=== PATIENT | male | born 1965 | race Caucasian/White ===

== ENCOUNTER → 2022-03-09 | Outpatient (CLI) | payer BC, SELFPAY ==
--- NOTE | 2022-03-09 11:37 | RAD_ITS ---
EXAM: XR LEFT KNEE, 3 VIEWS CLINICAL INDICATION: PAIN TECHNIQUE: Three views of the left knee. This report was created using [employer] report generation technology. COMPARISON: None. FINDINGS: BONES/JOINTS: Unremarkable. No acute fracture. No subluxation. Normal alignment. Preservation of the joint space. No sclerotic or destructive changes observed. SOFT TISSUES: Unremarkable. No soft tissue swelling or gas. No radiopaque foreign body. RAD/Knee 3 Views IMPRESSION: Negative left knee x-rays. Electronically Signed: Michael Santana MD at 22:05 EDT ,
== END | disposition home or self-care (01) ==
LOC: MTRAD 11:36
PROVIDERS: PCP Nurse Practitioner Family; Referring Provider Nurse Practitioner Family; Visit Provider Nurse Practitioner Family
DX: M25.562 Pain in left knee (principal)
CPT/HCPCS: 73562

== ENCOUNTER 2024-01-31 20:56 | Observation (INO) | payer BC, SELFPAY ==
[2024-01-31 20:57] VITALS: BP 170/83; PULSE 85; RESP 18; TEMP 35.8; O2SAT 93
[2024-01-31 21:00] VITALS: BMI 53.1
--- NOTE | 2024-01-31 21:31 | CT_ITS ---
We are attempting to reach an attending provider to discuss findings. An addendum with communication details will be sent when the communication is complete. EXAM: CT Abdomen And Pelvis W/ Contrast Injection HISTORY: RLQ abd pain TECHNIQUE: Routine protocol CT abdomen pelvis. IV Contrast: IV 100mL Isovue-370 . Oral Contrast: without. Sagittal and coronal images were reconstructed. RADIATION DOSAGE (If Supplied By Facility): CTDIvol = ( 40.91 ) mGy, DLP = ( 1699.95 ) mGycm Individualized dose optimization techniques were used for this CT. COMPARISON: None. LIMITATIONS: None. FINDINGS: LOWER CHEST: Unremarkable. LIVER: Unremarkable. GALLBLADDER/BILE DUCTS: Unremarkable. PANCREAS: Unremarkable. SPLEEN: Unremarkable. ADRENAL GLANDS: Unremarkable. KIDNEYS / URETERS: Unremarkable. Small cyst in the left kidney, no follow-up needed. BOWEL / MESENTERY: Wall thickening of the base of the cecum. No bowel obstruction. APPENDIX: Dilated. 15 mm transverse diameter. 8 mm calcified appendicolith within the proximal lumen. Thickened wall with adjacent stranding. No definite findings to suggest perforation. PERITONEUM: No free air. Small amount of free fluid in the pelvis. VESSELS: Abdominal aorta is normal caliber. RETROPERITONEUM: Unremarkable. REPRODUCTIVE ORGANS: Unremarkable. BLADDER: Unremarkable. ABDOMINAL WALL: Small bilateral inguinal hernias containing only fat, no bowel. BONES: No acute abnormality. OTHER: None. CT/Abdomen/Pelvis W IV Cont ONLY IMPRESSION: Acute appendicitis. Appendicolith. No definite evidence of perforation. Electronically Signed: Nicki Chavez MD at 23:08 EDT ,
--- NOTE | 2024-01-31 21:32 | EDS_ITS ---
HPI HPI - GI History of Present Illness Chief Complaint: Abd Pain Informant: patient Narrative Narrative: Patient is a 58-year-old male with history of prior umbilical hernia repair performed by Dr. Olivo presenting with abdominal pain. Patient states that around 11 AM today he had some pain in his stomach and points to his periumbilical region. He felt like it was a cramp to get before having a bowel movement. As the day progressed started to localize to the right lower quadrant. He states is now been constant and sharp. He denies associate nausea, vomiting or diarrhea. He states he had a normal bowel movement today. Denies any fever or chills. Denies any radiation of the pain currently. Denies any history of kidney stones. Still has his appendix. Did have a routine screening colonoscopy was told he was fine for 7 years. No other complaints or concerns at this time. [facility] Medical History Back pain Umbilical hernia Home Medications ?Medication ?Instructions ?Recorded ?Last Taken ?Type NK 01/31/24 Unknown History Allergy/AdvReac Type Severity Reaction Status Date / Time No Known Allergies Allergy Verified 01/31/24 20:56 Social History Smoking Status: Never smoker ROS ROS ED Constitutional Constitutional ED: Denies chills or fever(s) Cardiovascular Cardiovascular: Denies chest pain Respiratory/Chest Respiratory/Chest: Denies cough Gastrointestinal Gastrointestinal: Reports abdominal pain; Denies constipation, diarrhea, nausea or vomiting Genitourinary Genitourinary ED: Denies dysuria or hematuria Musculoskeletal Musculoskeletal: Denies arthralgias, back pain or myalgias Integumentary Denies rash Hematologic/Lymphatic Hematologic/Lymphatic: Denies easy bleeding or easy bruising EXAM Physical Exam Const Vital Signs: 01/31/24 20:57 01/31/24 21:58 Temperature 96.5 F L Temperature Source Temporal Pulse Rate 85 75 Respiratory Rate 18 18 Blood Pressure 170/83 H 182/89 H Blood Pressure Mean 112 120 Pulse Ox 93 95 Oxygen Delivery Method Room Air Room Air Positive well nourished and well developed General Appearance ED: well developed and NAD HEENT Reports moist mucous membranes Neck supple Resp normal respiratory effort and clear to auscultation bilaterally Cardio regular rate and regular rhythm GI non-tender; Negative for non-distended GI Narrative: Protuberant abdomen. No reproducible tenderness to palpation. Patient points to his right lower quadrant as area of pain. No hernia appreciated. Palpation: soft; Negative for tender or guarding Extremity General Extremety ED: Negative for edema General Extremity: Negative for edema Neuro moves all extremities Sensorium / Orientation: alert Motor Exam: Negative for general weakness Psych mental status grossly normal and thought process normal Skin no wounds Lesions: no lesions Rashes: no rashes MDM MDM MDM Narrative Medical decision making narrative: Patient evaluated for worsening right lower quadrant abdominal pain. He started periumbilical and is now in the right lower quadrant. Is overall well- appearing. Vital signs significant for hypertension. Patient initially declining any pain medication but is amenable to taking Bentyl. He then asked for a mild pain medicine is given IV Toradol. Lab work largely normal. CT abdomen pelvis does show findings distant with acute appendicitis with appendicolith. No definite evidence of perforation. This is discussed with radiology. Patient started on Zosyn. Is informed of findings and need for surgery for treatment of acute appendicitis. He is now amenable to receiving morphine as he is continuing to have pain. He is also started on maintenance fluids. Will be kept NPO. We discussed the case with surgery on-call, Dr. Scherer. Lab Data Attestation: I reviewed the patient's lab results. Labs: Laboratory Results - last 24 hr 01/31/24 21:29 WBC 10.9 RBC 4.48 L Hgb 13.5 Hct 40.8 MCV 91.1 MCH 30.1 MCHC 33.1 RDW Std Deviation 40.7 RDW Coeff of Curt 12.3 Plt Count 281 MPV 10.0 Immature Gran % (Auto) 0.300 Neut % (Auto) 73.4 H Lymph % (Auto) 16.3 L [place] % (Auto) 7.6 Eos % (Auto) 1.9 Baso % (Auto) 0.5 Absolute Neuts (auto) 8.0 H Absolute Lymphs (auto) 1.78 Nucleated RBC % 0 Sodium 139 Potassium 3.8 Chloride 104 Carbon Dioxide 30.0 Anion Gap 5 BUN 10 Creatinine 0.86 Estim Creat Clear Calc 134.99 Est GFR (MDRD) Af Amer 117 Est GFR (MDRD) Non-Af 97 BUN/Creatinine Ratio 11.7 Glucose 116 H Calcium 9.5 Total Bilirubin 0.50 AST 15 ALT 26 Alkaline Phosphatase 91 Total Protein 7.3 Albumin 3.6 Globulin 3.7 Albumin/Globulin Ratio 1.0 Lipase 34 Radiography Diagnostic Testing: Clinical Impression(s) from Imaging Studies Abdomen/Pelvis CT 01/31/24 21:31 IMPRESSION: Acute appendicitis. Appendicolith. No definite evidence of perforation. Electronically Signed: Nicki Chavez MD at 23:08 EDT Reading Location ID and State: [address] [place] [address] Tel , Service support , ADDENDUM: 01/31/24 2317 IMPRESSION: Acute appendicitis. Appendicolith. No definite evidence of perforation. N.B. : The above Results were Read Back by Nicki Chavez MD to Leslie Cid DO, and understanding confirmed on 01/31/2024 23:10:28 (ET). Electronically Signed: Nicki Chavez MD at 23:08 EDT , Discharge Plan Triage Chief Complaint: Abd Pain ED Provider: Leslie Cid Dx/Rx/DC Orders Clinical Impression: Acute appendicitis Prescriptions: No Action NK Primary Care Provider: Sudha Pa NP Referrals: Sudha Pa NP, SOIL[employer] TECHNICIAN-C [Primary Care Provider] - Print Language: Chinese Disposition Disposition: Acute Care Hospital [facility]
[2024-01-31] MEDS: 0.9% Normal Saline (1000mL) 1,000 ML 125 ML IV (21:39)
[2024-01-31] MEDS: Dicyclomine 10 MG Capsule 20 MG PO (21:40)
[2024-01-31] MEDS: Ketorolac 15 MG/ML Vial IV (21:55)
[2024-01-31 21:58] VITALS: BP 182/89; PULSE 75; RESP 18; O2SAT 95
[2024-01-31 21:59] LABS: Absolute Lymphocyte Count 1.78 X10^3/uL (0.83-4.51); Basophil# 0.05 X10^3/uL; Basophil% 0.5 % (0-1); Eosinophil# 0.21 X10^3/uL; Eosinophils% 1.9 % (0-5); Hematocrit 40.8 % (40-54); Hemoglobin 13.5 g/dL (13.0-16.5); Lymphocyte # 1.78 X10^3/ul (0.83-4.51); Lymphocyte % 16.3 % (19-41); Mean Corp Hgb Conc 33.1 g/dL (32-36); Mean Corpuscular Hgb 30.1 pg (27.0-32.0); Mean Corpuscular Volume 91.1 fL (80-94); Monocyte# 0.83 X10^3/uL; Monocyte% 7.6 % (0-10); NRBC Flagged by Analyzer 0 % (0-5); Neutrophil # 8.04 X10^3/uL (2.7-7.7); Neutrophil % 73.4 % (47-70); Platelet Count 281 K/mm3 (150-450); RBC Distribution Width CV 12.3 % (11.6-14.6); RBC Distribution Width SD 40.7 fl (35.1-43.9); Red Blood Count 4.48 M/mm3 (4.6-6.2); White Blood Count 10.9 K/mm3 (4.4-11.0)
[2024-01-31 22:32] LABS: AST(SGOT) 15 U/L (15-37); Alanine Aminotransfer ALT/SGPT 26 U/L (16-61); Albumin, Serum 3.6 g/dL (3.2-5.0); Alkaline Phosphatase 91 U/L (45-117); Anion Gap 5 (5-15); BUN 10 mg/dL (7-18); BUN/Creat Ratio 11.7 RATIO (10-20); Calcium,Total 9.5 mg/dL (8.5-10.1); Chloride 104 mmol/L (98-107); Creatinine, Serum 0.86 mg/dL (0.70-1.30); EST Glomerular Filtration Rate 97 mL/min (>60); Est Glom Filt Rate - Afr Amer 117 mL/min (>60); Estimated Creatinine Clearance 134.99 ml/min; Globulin 3.7 g/dL (2.2-4.2); Glucose 116 mg/dL (74-106); Lipase 34 U/L (13-75); Potassium 3.8 mmol/L (3.5-5.1); Protein, Total 7.3 g/dL (6.4-8.2); Sodium Level 139 mmol/L (136-145)
[2024-01-31 23:00] VITALS: BP 166/79; PULSE 85; RESP 18; O2SAT 97
[2024-01-31] MEDS: morphine 8 MG/ML Syringe 6 MG IV (23:48)
[2024-01-31] MEDS: Piperacil/Tazobactam 3.375 GM in 0.9% Normal Saline (50mL MB+) 50 ML IV (23:49)
[2024-01-31 23:55] LABS: Bacteria 0 SEEN /hpf (None Seen); Mucous, Urine 0 SEEN /hpf (<or=2+); Red Blood Cells-Urine 0 SEEN /hpf (0-5); Squamous Epithelial Cells - UA 0 SEEN /hpf (0-5); White Blood Cells 0 SEEN /hpf (0-5)
[2024-01-31 23:59] VITALS: BP 166/79; PULSE 85; RESP 18; TEMP 35.8; O2SAT 97
[2024-02-01] VITALS (12 sets, daily range): BP systolic 97–142; BP diastolic 56–98; PULSE 77–97; RESP 16–18; TEMP 36.5–37; O2SAT 86–99; BMI 52.9
--- NOTE | 2024-02-01 | PCM.HP.STD ---
HPI - General HPI Narrative DICK LANTIGUA, is a 58 M who presents with abdominal pain that started this morning. Patient reports that the pain started at his umbilical area and now is in his right lower quadrant. He denies nausea or vomiting. He reports no fevers or chills. Pain does not radiate. [facility] Medical History Back pain Umbilical hernia Home Medications ?Medication ?Instructions ?Recorded ?Last Taken ?Type NK 01/31/24 Unknown History Allergy/AdvReac Type Severity Reaction Status Date / Time No Known Allergies Allergy Verified 01/31/24 20:56 Social History Smoking Status: Never smoker ROS Constitutional Constitutional: Denies anorexia, chills, fatigue or fever(s) Eyes Eyes: Denies blurry vision ENT HEENT: Denies abnormal hearing Cardiovascular Cardiovascular: Denies chest pain Respiratory/Chest Respiratory/Chest: Denies cough or dyspnea Gastrointestinal Gastrointestinal: Reports abdominal pain; Denies melena, nausea or vomiting Genitourinary Genitourinary: Denies change in urinary stream Musculoskeletal Musculoskeletal: Denies abnormal gait Integumentary Integumentary: Denies new lesions Neurologic Neurologic: Denies abnormal gait or focal weakness Psychiatric Psychiatric: Denies anxiety Endocrine Endocrinology: Denies heat intolerance Hematologic/Lymphatic Hematologic/Lymphatic: Denies easy bleeding Vital Signs Vital Signs Vital Signs: 01/31/24 20:57 01/31/24 21:58 01/31/24 23:00 Temperature 96.5 F L Temperature Source Temporal Pulse Rate 85 75 85 Respiratory Rate 18 18 18 Blood Pressure 170/83 H 182/89 H 166/79 H Blood Pressure Mean 112 120 108 Pulse Ox 93 95 97 Oxygen Delivery Method Room Air Room Air Room Air Weight Weight: 349 lb 10.45 oz Body Mass Index (BMI) 53.1 Physical Exam Const oriented x3 and no apparent distress Resp normal respiratory effort Cardio regular rate and regular rhythm GI soft to palpation Palpation: tender RLQ Extremity normal to inspection Results Lab / Micro Data 01/31/24 21:29 01/31/24 21:29 Labs: Laboratory Results - last 24 hr 01/31/24 21:29: WBC 10.9, RBC 4.48 L, Hgb 13.5, Hct 40.8, MCV 91.1, MCH 30.1, MCHC 33.1, RDW Std Deviation 40.7, RDW Coeff of Curt 12.3, Plt Count 281, MPV 10.0, Immature Gran % (Auto) 0.300, Neut % (Auto) 73.4 H, Lymph % (Auto) 16.3 L, [place] % (Auto) 7.6, Eos % (Auto) 1.9, Baso % (Auto) 0.5, Absolute Neuts (auto) 8.0 H, Absolute Lymphs (auto) 1.78, Nucleated RBC % 0, Sodium 139, Potassium 3.8, Chloride 104, Carbon Dioxide 30.0, Anion Gap 5, BUN 10, Creatinine 0.86, Estim Creat Clear Calc 134.99, Est GFR (MDRD) Af Amer 117, Est GFR (MDRD) Non-Af 97, BUN/Creatinine Ratio 11.7, Glucose 116 H, Calcium 9.5, Total Bilirubin 0.50, AST 15, ALT 26, Alkaline Phosphatase 91, Total Protein 7.3, Albumin 3.6, Globulin 3.7, Albumin/Globulin Ratio 1.0, Lipase 34 Imaging Radiology Impression Abdomen/Pelvis CT 01/31/24 21:31 IMPRESSION: Acute appendicitis. Appendicolith. No definite evidence of perforation. Electronically Signed: Nicki Chavez MD at 23:08 EDT Reading Location ID and State: [id number] [facility] [place] Tel , Service support , ADDENDUM: 01/31/24 2317 IMPRESSION: Acute appendicitis. Appendicolith. No definite evidence of perforation. N.B. : The above Results were Read Back by Nicki Chavez MD to Leslie Cid DO, and understanding confirmed on 01/31/2024 23:10:28 (ET). Electronically Signed: Nicki Chavez MD at 23:08 EDT Reading Location ID and State: [id number] [facility] [place] Tel , Service support , Assessment & Plan Assessment/Plan (1) Acute appendicitis: QUALIFIERS: Acute appendicitis type: unspecified acute appendicitis type Qualified Code(s): K35.80 - Unspecified acute appendicitis PLAN: Patient is having abdominal pain in the right lower quadrant. He had a CT scan which revealed acute appendicitis with appendicolith. I discussed performing a laparoscopic appendectomy with him. I discussed the procedure in detail. I discussed the risks including but not limited to bleeding, infection, injury other organs such as the bowel, bladder, ureter. I also discussed the possibility of having to convert to open surgery if there is too much inflammation or too much adipose tissue. Patient understands the risks and is willing to proceed. I will take the patient today for surgery and in the meantime I will admit him on IV antibiotics and IV fluids and keep him n.p.o. Jimmy Scherer MD Pager: [facility] [address] [place] [address], [address] [place] [address] Office:
[2024-02-01 00:01] LABS: Color, Urine Yellow (Yellow); Glucose, Dipstick Normal (Normal); Ketone-Dipstick Negative (Negative); Leukocyte Esterase-Dipstick Negative /ul (Negative); Nitrite-Dipstick Negative (Negative); Occult Blood-Urine Negative /ul (Negative); Protein-Dipstick 15 mg/dl (Negative); Urine Bilirubin Dipstick Negative (Negative); Urine Clarity Clear (Clear); Urine Urobilinogen Normal (Normal)
[2024-02-01] MEDS: 0.9% Normal Saline (1000mL) 1,000 ML 100 ML IV ×3 (02:00→16:54)
[2024-02-01] MEDS: oxyCODONE 5 MG Tablet PO ×4 (02:00→23:55)
[2024-02-01] MEDS: Acetaminophen 325 MG Tablet 650 MG PO ×4 (02:01→23:55)
--- NOTE | 2024-02-01 05:00 | EKG12_ITS ---
Test Reason : PREOP Blood Pressure : / mmHG Vent. Rate : 087 BPM Atrial Rate : 087 BPM P-R Int : 136 ms QRS Dur : 086 ms QT Int : 344 ms P-R-T Axes : 000 -25 134 degrees QTc Int : 413 ms Normal sinus rhythm Low voltage QRS Nonspecific T wave abnormality Abnormal ECG When compared with ECG of 01-FEB-2024 05:41, MANUAL COMPARISON REQUIRED, DATA IS UNCONFIRMED Confirmed by JOSELIN BORGES, CHOLO ([id number]), movie editor KRISHAN OBREGON ([id number]) on 02/03/2024 2:53:19 PM Referred By: EDU Confirmed By:CHOLO OLIVERA MD
--- NOTE | 2024-02-01 05:41 | EKG12_ITS ---
Test Reason : PRE-OP Blood Pressure : / mmHG Vent. Rate : 078 BPM Atrial Rate : 078 BPM P-R Int : 138 ms QRS Dur : 082 ms QT Int : 354 ms P-R-T Axes : 067 -04 040 degrees QTc Int : 403 ms Normal sinus rhythm Normal ECG No previous ECGs available Confirmed by JOSELIN BORGES, CHOLO ([id number]), scientific publications editor KRISHAN OBREGON ([id number]) on 02/04/2024 7:21:49 AM Referred By: ACALAB Confirmed By:CHOLO OLIVERA MD
[2024-02-01 06:08] LABS: Anion Gap 4 (5-15); BUN 10 mg/dL (7-18); Chloride 106 mmol/L (98-107); Creatinine, Serum 0.91 mg/dL (0.70-1.30); EST Glomerular Filtration Rate 90 mL/min (>60); Est Glom Filt Rate - Afr Amer 109 mL/min (>60); Estimated Creatinine Clearance 127.28 ml/min; Glucose 116 mg/dL (74-106); Potassium 4.2 mmol/L (3.5-5.1); Sodium Level 139 mmol/L (136-145)
--- NOTE | 2024-02-01 06:41 | PCM.PN.SRG ---
Subjective Subjective Patient's pain medication is controlling his pain. He has no new complaints. Objective Data Objective Data Vital Signs: Vital Signs Temp Pulse Resp BP Pulse Ox O2 Del Method 98.6 F 84 16 140/98 H 96 Room Air 02/01/24 01:28 02/01/24 01:28 02/01/24 01:28 02/01/24 01:28 02/01/24 01:28 02/01/24 01:28 Oxygen Delivery Method Room Air Weight: 348 lb 5.286 oz Body Mass Index (BMI) 52.9 Intake & Output: Intake and Output for Last 24 Hours 01/30/24 01/31/24 02/01/24 23:59 23:59 23:59 Intake Total 968.75 / 968.75 Balance 968.75 / 968.75 Lab / Micro Data 01/31/24 21:29 02/01/24 05:40 Labs: Laboratory Results - last 24 hr 01/31/24 21:29: WBC 10.9, RBC 4.48 L, Hgb 13.5, Hct 40.8, MCV 91.1, MCH 30.1, MCHC 33.1, RDW Std Deviation 40.7, RDW Coeff of Curt 12.3, Plt Count 281, MPV 10.0, Immature Gran % (Auto) 0.300, Neut % (Auto) 73.4 H, Lymph % (Auto) 16.3 L, [place] % (Auto) 7.6, Eos % (Auto) 1.9, Baso % (Auto) 0.5, Absolute Neuts (auto) 8.0 H, Absolute Lymphs (auto) 1.78, Nucleated RBC % 0, Sodium 139, Potassium 3.8, Chloride 104, Carbon Dioxide 30.0, Anion Gap 5, BUN 10, Creatinine 0.86, Estim Creat Clear Calc 134.99, Est GFR (MDRD) Af Amer 117, Est GFR (MDRD) Non-Af 97, BUN/Creatinine Ratio 11.7, Glucose 116 H, Calcium 9.5, Total Bilirubin 0.50, AST 15, ALT 26, Alkaline Phosphatase 91, Total Protein 7.3, Albumin 3.6, Globulin 3.7, Albumin/Globulin Ratio 1.0, Lipase 34 01/31/24 23:45: Urine Color Yellow, Urine Clarity Clear, Urine pH 5.0, Ur Specific [place] 1.010, Urine Protein 15 H, Urine Glucose (UA) Normal, Urine Ketones Negative, Urine Occult Blood Negative, Urine Nitrite Negative, Urine Bilirubin Negative, Urine Urobilinogen Normal, Ur Leukocyte Esterase Negative, Urine RBC 0 SEEN, Urine WBC 0 SEEN, Ur Squamous Epith Cells 0 SEEN, Urine Bacteria 0 SEEN, Urine Mucus 0 SEEN 02/01/24 05:40: Sodium 139, Potassium 4.2, Chloride 106, Carbon Dioxide 29.0, Anion Gap 4 L, BUN 10, Creatinine 0.91, Estim Creat Clear Calc 127.28, Est GFR (MDRD) Af Amer 109, Est GFR (MDRD) Non-Af 90, BUN/Creatinine Ratio 11.0, Glucose 116 H, Calcium 9.0 Radiography Diagnostic Testing: Radiology Impression Abdomen/Pelvis CT 01/31/24 21:31 IMPRESSION: Acute appendicitis. Appendicolith. No definite evidence of perforation. Electronically Signed: Nicki Chavez MD at 23:08 EDT Reading Location ID and State: [address] [place] [address] Tel , Service support , ADDENDUM: 01/31/24 2317 IMPRESSION: Acute appendicitis. Appendicolith. No definite evidence of perforation. N.B. : The above Results were Read Back by Nicki Chavez MD to Leslie Cid DO, and understanding confirmed on 01/31/2024 23:10:28 (ET). Electronically Signed: Nicki Chavez MD at 23:08 EDT , Physical Exam Const oriented x3 and no apparent distress Resp normal respiratory effort GI soft to palpation Palpation: tender RLQ Assessment & Plan Assessment/Plan (1) Acute appendicitis: QUALIFIERS: Acute appendicitis type: unspecified acute appendicitis type Qualified Code(s): K35.80 - Unspecified acute appendicitis PLAN: The patient's pain is being controlled. He will have surgery this afternoon for his acute appendicitis. Jimmy Scherer MD Pager: [facility] [address] [place] [address], [address] [place] [address] Office:
[2024-02-01] MEDS: Morphine 2 MG/ML Syringe IV (11:18)
--- NOTE | 2024-02-01 11:24 | PRE.ANES_ITS ---
ASA Classification* ASA Classification ASA Classification: 3 Assessment & Plan Anesthesia* Anesthesia Assessment Anesthesia Assessment: Discussed sedation and/or anesthesia options, risks, benefits, and alternatives with patient/parents/legal guardian/POA. Questions invited. The patient/parents/legal guardian/POA seems to understand and agrees to proceed with anesthesia plan. Reviewed the physical assessment, medical history, allergy history and patient home medications list prior to surgery/procedure/anesthetic and documented any changes. Performed airway and anesthesia risk assessments. Anesthesia Type Anesthesia Type: General ( [id number]) Anesthesia Focused Assessment* Temperature: 97.9 F Pulse Rate: 77 Blood Pressure: 131/76 Respiratory Rate: 16 Pulse Ox: 98 Airway Assessment Mouth opens: >3 cm Mallampati Score: III Focused Labs Anesthesia Preop lab: CBC WBC 10.9 K/mm3 (4.4-11.0) 01/31/24 21:29 RBC 4.48 M/mm3 (4.6-6.2) L 01/31/24 21:29 Hgb 13.5 g/dL (13.0-16.5) 01/31/24 21:29 Hct 40.8 % (40-54) 01/31/24 21:29 Plt Count 281 K/mm3 (150-450) 01/31/24 21:29 CHEMISTRY Potassium 4.2 mmol/L (3.5-5.1) 02/01/24 05:40 Sodium 139 mmol/L (136-145) 02/01/24 05:40 BUN 10 mg/dL (7-18) 02/01/24 05:40 Creatinine 0.91 mg/dL (0.70-1.30) 02/01/24 05:40 Glucose 116 mg/dL (74-106) H 02/01/24 05:40 COAG Pre-Assessment Diagnosis/Proposed Procedure Planned Operative Procedure(s): lap appy Anesthesia History 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 When Was Last Pacemaker Check QUESTION #4 FULL TEXT: You/Your Family Experience fever (hyperthermia) with Anesthesia Last Oral Intake Last Oral intake: Last Oral Intake NPO since 00:00 02/01/24 07:30 Meds taken in AM with sips of water? Meds patient instructed to take am of surgery PONV PONV - accounts payable clerk: PONV - accounts payable clerk Female HX of Motion Sickness HX of N/V After Surgery Non-Smoker Duration of Surgery greater than 60 minutes Number of Risk Factors PONV Score Height & Weight Height & Weight: Anesthesia: Height & Weight Height 5 ft 8 in 02/01/24 07:30 Weight: 158 kg 02/01/24 07:30 Body Mass Index (BMI) 52.9 02/01/24 07:30 Respiratory Assessment Respiratory Assessment - accounts payable clerk: Respiratory Tract Infection Hx - accounts payable clerk Hx Respiratory Tract Infection No 02/01/24 01:47 STOP Sleep Apnea STOP Sleep Apnea - accounts payable clerk: STOP Sleep Apnea - accounts payable clerk Hx Hypertension No 02/01/24 01:08 Hx Sleep Apnea No 02/01/24 01:08 CPAP BIPAP Do you snore loudly (louder Yes 02/01/24 01:08 than talking or can be heard Do you often feel tired/ No 02/01/24 01:08 fatigued/ sleepy during daytime? Has anyone observed you stop No 02/01/24 01:08 breathing during sleep? STOP Results Negative 02/01/24 01:08 QUESTION #5 FULL TEXT : Do you snore loudly (louder than talking or can be heard through closed doors)? Tobacco Use History Tobacco Use History - accounts payable clerk: Tobacco Use History - accounts payable clerk Tobacco Use Smoking Status Never smoker 02/01/24 01:08 Hx Tobacco Use No 02/01/24 01:08 Years Smoking Packs Smoked per Day Smoking Cessation Date was within the last 15 years Hx Smoking Cessation Date Hx Smoking Cessation Counseling Hematologic Medial History Hematologic Hx - accounts payable clerk: Hematologic Medical Hx - agriculture mechanic Hx of Blood Transfusion No 02/01/24 01:08 Hx of Transfusion in last 3 No 02/01/24 01:08 Months Date of Last Transfusion (if within last 3 months) Ever experience any problems No 02/01/24 01:08 with transfusion(s)? Specify any problems Hx of Preganancy in last 3 N/A 02/01/24 01:08 Months Nurse Filling Out Transfusion AHINES 02/01/24 01:08 & Questions: Date: 02/01/24 02/01/24 01:08 Time: 01:09 02/01/24 01:08 Patient unable to answer at Yes 02/01/24 01:08 this time (ie. confused, unrespo /Reproduction History /Reproductive History - accounts payable clerk: /Reproductive Hx- accounts payable clerk Hx Now No 02/01/24 01:47 Gestational Age (in weeks): EDC: Hx Hx Para Hx Section SAB No 02/01/24 01:47 Active Medications Active Medications: Current Medications Generic Name Dose Route Start Last Admin Trade Name Freq PRN Reason Stop Dose Admin Acetaminophen 650 mg 02/01/24 01:03 02/01/24 06:05 Acetaminophen 325 Mg Tablet PO 650 mg Q4H PRN PRN Administration Pain 1-10 or Fever Sodium Chloride 1,000 mls @ 100 mls/hr 02/01/24 01:03 02/01/24 06:05 IV 100 mls/hr .Q10H NORI Administration Morphine Sulfate 2 - 4 mg 02/01/24 01:03 02/01/24 11:18 Morphine 2 Mg/Ml Syringe IV 4 mg Q2H PRN PRN Administration Pain Score 4-10 Ondansetron HCl 4 mg 02/01/24 01:03 Ondansetron 4 Mg/2 Ml Vial IV Q6H PRN PRN NAUSEA/VOMITING Oxycodone HCl 5 - 10 mg 02/01/24 01:03 02/01/24 06:05 Oxycodone 5 Mg Tablet PO 10 mg Q4H PRN PRN Administration Pain Score 4-10 Sodium Chloride 10 - 40 ml 02/01/24 01:03 0.9% Saline Lock 10 Ml Syringe IV UD PRN SALINE FLUSH Sodium Chloride 10 - 40 ml 02/01/24 01:03 0.9% Saline Lock 10 Ml Syringe IV UD PRN SALINE FLUSH Sodium Chloride 10 - 40 ml 02/01/24 01:12 0.9% Saline Lock 10 Ml Syringe IV UD PRN SALINE FLUSH PFSH Medical History Back pain Umbilical hernia Home Medications ?Medication ?Instructions ?Recorded ?Last Taken ?Type NK 01/31/24 Unknown History Allergy/AdvReac Type Severity Reaction Status Date / Time No Known Allergies Allergy Verified 01/31/24 20:56 Social History Smoking Status: Never smoker Review of Systems (Anesthesia) ROS Narrative System reviewed and no additional complaints, except as documented.
[2024-02-01] MEDS: Ondansetron 4 MG/2 ML Vial IV (11:44)
[2024-02-01] MEDS: Bupiv/Epi 0.25% 30 ML Vial (14:08)
--- NOTE | 2024-02-01 14:20 | APP_PTH ---
PATIENT: DICK LANTIGUA LOC: MS3 U#:[id number] AGE/SX: 58/M ROOM: [facility] RE01/31/[address]: Dr. Jimmy Scherer MD : 1965 BED: 1 DIS: 02/02/2024 SPEC #: [id number] RECD: 02/03/24 07:44 STATUS: SONU CRANE #: [id number] KENYA: 02/01/24 14:[address]: Jimmy Scherer DEPT: SURGICAL PATHOLOGY RECD BY: Mio Chandler ENTERED: 02/03/24 09:47 SP TYPE: APPENDIX OTHR DR: DINA Hansen Tissues: Appendix, NOS Procedures: Surgery Specimen Level III HEADER OPERATION: Laparoscopic, appendectomy PRE-OP DIAGNOSIS: Acute appendicitis TISSUE SUBMITTED: Appendix MICROSCOPIC DIAGNOSIS Appendix, appendectomy: Acute appendicitis and periappendicitis. RICARDO/ 02/04/2024 MICROSCOPIC DESCRIPTION Slides are reviewed. GROSS DESCRIPTION Received in fixative is one container labeled with the patient's name and designated appendix. The specimen consists of appendix measuring 6.0 cm in length and up to 1.3 cm in diameter. The attached periappendiceal adipose tissue measures up to 2.5 cm in width. The serosa surface is covered in roy purulent exudate. No obvious perforation is identified. The lumen is filled with fecal material. No fecalith is identified. Branch Operations Coordinator sections are submitted in one cassette. / RICARDO: 02/03/2024 TC:2 CPT: 75688
--- NOTE | 2024-02-01 14:39 | OP.PCM_ITS ---
Report of Operation Date of Procedure: 02/01/24 Pre-Operative Diagnosis: Acute appendicitis Post-Operative Diagnosis: Acute appendicitis Surgery/Procedure Performed:: Laparoscopic appendectomy Type of Anesthesia: General/Regional Specimen's removed: Appendix Estimated Blood Loss (mL): 5 Description of Procedure: The patient was brought into the operating room and general anesthesia was induced. The left arm was tucked and the abdomen was prepped and draped in usual sterile fashion. A small midline incision was made superior to the umbilicus and deepened to the level of the fascia. The fascia was elevated and incised. The peritoneum was also elevated and incised. A finger sweep was performed and a balloon trocar was placed into the abdomen and inflated. The abdomen was insufflated to 15 mmHg and the camera was inserted and the abdomen was inspected for any injuries upon entering the abdomen. There were none. The patient was placed in Trendelenburg position and a 5 mm ports placed in the left lower quadrant and suprapubic areas under direct visualization. Next using atraumatic bowel graspers the appendix was identified. The appendix was grasped and elevated and Enseal was used to take down the mesoappendix. A stapler was used to come across the base of the appendix. The appendix was then placed in Endo Catch bag and removed through the umbilical incision. The staple line was inspected and found to be hemostatic and intact. The 2 5 mm ports are removed under direct visualization. The balloon trocar was deflated and removed and all the air was removed from the abdomen. The umbilical incision fascia was closed with an 0 Vicryl [id number] suture. The incisions were then irrigated with saline and dried. Local anesthetic was injected into the incision sites. The skin incisions were then closed with interrupted 4-0 Monocryl suture and Steri- Strips. Bandages were applied and the patient was awoken and taken to PACU in stable condition. Patient tolerated the procedure well. Admit VTE Documentation VTE Mechan Device Prophylaxis: SCD's
--- NOTE | 2024-02-01 14:41 | DCINST_ITS ---
Discharge Instructions Diet Discharge Diet: Light diet - advance as tolerated Activity Discharge Activity: May Not Drive (for 2-3 days or while taking narcotic pain medications) May shower in (days): 1 Lifting Restrictions: 15 pounds for 2 weeks Dressing / Incision Call your doctor if your incision/area has: Continuous Slow Oozing, Sudden Increased Bleeding, Increased Pain/ Swelling, Increased Redness and Foul Smelling Discharge Call your doctor if you observe: Fever of 101 or Higher Suture Line Care: Avoid Pulling/Pushing and Avoid Pinching/Bending Remove Dressing in: 2 days (Remove clear bandages in 2 days, remove Steri-Strips in 7 to 10 days) Cleanse incision/area with: Soap & Water Follow Up Care Please Follow Up With: Jimmy Scherer MD When: Please call to schedule 2 week follow up appointment at [phone] Test Results: Test results from this visit will be discussed in further detail at your follow- up appointment, if applicable. Discharge Plan Admission Admit Date/Time: 01/31/24 23:57 Attending Provider: Jimmy Scherer Primary Care Provider: Sudha Pa NP Discharge Orders/Prescriptions Prescriptions: New acetaminophen 325 mg Tablet 650 mg PO Q4H PRN PRN (Reason: Pain 1-10 Or Fever) Qty: 0 0RF oxycodone 5 mg Tablet 5 - 10 mg PO Q4H PRN PRN (Reason: Pain Score 4-10) 5 Days Qty: 20 0RF Referrals / Follow Up: Sudha Pa NP, UNDER CUTTING MACHINE OPERATOR-C [Primary Care Provider] - Disposition Disposition (needs filled in before D/C Order can be placed): Home, Self Care
--- NOTE | 2024-02-01 14:52 | PCM.POST.ANE ---
Anesthesia: Postop Eval I Current Vital Signs Temperature: 97.7 F Pulse Rate: 80 Blood Pressure: 127/79 Respiratory Rate: 16 Pulse Ox: 99 Assessment Airway patent: Yes Spontaneous unlabored respirations: Yes nausea: No Vomiting: No Anesthesia Complication: No Fluid Hydration Crystalloid volume administer (ml): 1,000 Total IV fluid infused: 1,000 Progress Note Anesthesia document: Postop Eval 1 completed: No
--- NOTE | 2024-02-01 14:53 | PCM.POSTANE2 ---
Anesthesia Postop Eval I Sum Postop Eval Completion status Anesthesia document: Postop Eval 1 completed: No Anesthesia Postop Eval I Summary Anesthesia Postop Eval I Summary: Anesthesia Postop Eval I: Assessment Summary Airway patent Yes 02/01/24 14:52 Spontaneous unlabored Yes 02/01/24 14:52 respirations Mental status nausea No 02/01/24 14:52 Vomiting No 02/01/24 14:52 Anesthesia Postop Eval I: Fluid Summary Crystalloid volume administer 1,000 02/01/24 14:52 (ml) Colloids volume administered ( ml) Blood Product volume administered (ml) Total IV fluid infused 1,000 02/01/24 14:52 Anesthesia Postop Eval I: Summary Notes Anesthesia Complication No 02/01/24 14:52 Anesthesia Complication Comment: Post-operative progress note Anesthesia: Postop Eval II Evaluation Mental status: Awake Pain Level: 0 nausea: No Vomiting: No
[2024-02-02] MEDS: 0.9% Normal Saline (1000mL) 1,000 ML 100 ML IV (02:30)
--- NOTE | 2024-02-02 03:40 | NURSING ---
Reviewed Haydee WOODS BOSS charting.
[2024-02-02 03:46] VITALS: BP 128/65; PULSE 86; RESP 18; TEMP 37.3; O2SAT 97
[2024-02-02] MEDS: oxyCODONE 5 MG Tablet PO (06:45)
[2024-02-02] MEDS: Acetaminophen 325 MG Tablet 650 MG PO (06:45)
[2024-02-02 06:56] VITALS: BP 126/55; PULSE 94; RESP 18; TEMP 37.5; O2SAT 94
--- NOTE | 2024-02-02 08:01 | PN.SURG_ITS ---
Subjective Subjective Patient reports tolerating regular diet. His discharge was held last night due to decreased bowel sounds. He reports he is comfortable no pain medications are working. Objective Data Objective Data Vital Signs: Vital Signs Temp Pulse Resp BP Pulse Ox O2 Del Method O2 Flow Rate 99.5 F H 94 18 126/55 H 94 Room Air 2 02/02/24 06:56 02/02/24 06:56 02/02/24 06:56 02/02/24 06:56 02/02/24 06:56 02/02/24 06:56 02/01/24 14:45 Oxygen Flow Rate (L/min) 2 Oxygen Delivery Method Room Air Weight: 348 lb 5.286 oz Body Mass Index (BMI) 52.9 Intake & Output: Intake and Output for Last 24 Hours 01/31/24 02/01/24 02/02/24 23:59 23:59 23:59 Intake Total 3247.08 / 3247.08 1160 / 1160 Balance 3247.08 / 3247.08 1160 / 1160 Lab / Micro Data 01/31/24 21:29 02/01/24 05:40 Physical Exam Const oriented x3 and no apparent distress Resp normal respiratory effort GI soft to palpation Palpation: tender Assessment & Plan Assessment/Plan (1) Acute appendicitis: QUALIFIERS: Acute appendicitis type: unspecified acute appendicitis type Qualified Code(s): K35.80 - Unspecified acute appendicitis PLAN: The patient tolerated regular diet with no nausea or vomiting. His pain is well-controlled. Continue to observe as the patient had low-grade fever but this may be due to atelectasis. As long as the patient is doing well I will discharge him home this afternoon. Jimmy Scherer MD Pager: [facility] [address] [place] [address], [address] [place] [address] Office:
[2024-02-02 10:05] VITALS: BP 137/62; PULSE 95; RESP 18; TEMP 37.1; O2SAT 94
== END 2024-02-02 12:30 | disposition home or self-care (01) ==
LOC: ED 02-01 → MS3 02-01 02:04
PROVIDERS: Anesthesiology; Admitting Provider Surgery; Emergency Provider Emergency Medicine; PCP Nurse Practitioner Family; Visit Provider Surgery
PROC: 0DTJ4ZZ Resection of Appendix, Percutaneous Endoscopic Approach (ICD-10-PCS; CPT 44970; principal; 2024-02-01 14:00)
DX: K35.80 Unspecified acute appendicitis (principal); I10 Essential (primary) hypertension
CPT/HCPCS: 44970; 00840; 96365 ×2; 74177; 80048; 80053; 81001; 83690; 85025; 88304; 93005; 96361; 96375; 99221; 99284; J7030; J7040; Q9967; A4216; C1760; G0378; J2405

== ENCOUNTER 2024-10-24 16:30 | Emergency (ER) | payer BC, SELFPAY ==
[2024-10-24 16:32] VITALS: BP 120/80; PULSE 82; RESP 16; TEMP 36.5; O2SAT 94; BMI 53.1
[2024-10-24 17:11] VITALS: BP 141/62; PULSE 62; RESP 18; O2SAT 98
--- NOTE | 2024-10-24 17:11 | CT_ITS ---
PROCEDURE: STROKE CTA HEAD AND NECK W/CON 10/24/2024 REASON FOR EXAM: NEURO DEFICIT, ACUTE, STROKE SUSPECTED TECHNIQUE: CTA imaging of the head and neck from the aortic arch to the skull vertex with out contrast and with intravenous contrast. Multiplanar and multisequence images were obtained. CONTRAST: Isovue 370 VOLUME: 100 mL Gauge IV One or more dose reduction techniques were used (e.g., Automated exposure control, adjustment of the mA and/or kV according to patient size, use of iterative reconstruction technique). RADIATION DOSE SUMMARY: DLP: 1151.36 mGycm COMPARISON: None. FINDINGS: The lung apices are clear. No acute soft tissue abnormalities. The [id number] is patent. The anterior cerebral, anterior communicating, middle cerebral, and posterior cerebral arteries are patent. The intracranial vertebrobasilar system is patent. The cervical vertebral arteries are patent. The aortic arch is patent. The common carotid arteries are patent. Mild atherosclerosis of the proximal right internal carotid artery without significant stenosis. CT/STROKE CTA Head AND Neck W/Con IMPRESSION: No acute arterial abnormalities of the head or neck. Reading Location: [place] [address]
--- NOTE | 2024-10-24 17:11 | EKG12_ITS ---
Test Reason : DIZZINESS Blood Pressure : */* mmHG Vent. Rate : 78 BPM Atrial Rate : 78 BPM P-R Int : 144 ms QRS Dur : 82 ms QT Int : 362 ms P-R-T Axes : 66 -17 54 degrees QTcB Int : 412 ms Normal sinus rhythm Normal ECG Confirmed by Jose Schulte ([id number]), editor map KRISHAN OBREGON ([id number]) on 10/26/2024 10:55:29 AM Referred By: Jatin Quick Confirmed By: Jose Schulte
--- NOTE | 2024-10-24 17:11 | CT_ITS ---
PROCEDURE: STROKE BRAIN/HEAD WITHOUT CONT 10/24/2024 REASON FOR EXAM: NEURO DEFICIT, ACUTE, STROKE SUSPECTED TECHNIQUE: Head CT without intravenous contrast. Coronal and Sagittal reconstruction series were provided. One or more dose reduction techniques were used (e.g., Automated exposure control, adjustment of the mA and/or kV according to patient size, use of iterative reconstruction technique. RADIATION DOSE SUMMARY: DLP: 1947.47 mGycm COMPARISON: None. FINDINGS: The ventricles are normal in size and midline in position. No evidence of acute hemorrhage or infarction. No extra-axial blood or fluid collections. The paranasal sinuses are clear. The mastoid air cells are well aerated. The calvarial vault and skull base are intact. CT/STROKE Brain/Head without Cont IMPRESSION: No acute intracranial abnormality. Reading Location: [place] [address]
[2024-10-24 17:32] LABS: Absolute Lymphocyte Count 1.51 X10^3/uL (0.83-4.51); Absolute Neutrophil Count 7.9 X10^3/uL (2.0-7.7); Basophil# 0.04 X10^3/uL; Basophil% 0.4 % (0-1); Eosinophil# 0.13 X10^3/uL; Eosinophils% 1.3 % (0-5); Hematocrit 40.9 % (40-54); Hemoglobin 13.6 g/dL (13.0-16.5); Lymphocyte # 1.51 X10^3/ul (0.83-4.51); Lymphocyte % 14.5 % (19-41); Mean Corp Hgb Conc 33.3 g/dL (32-36); Mean Corpuscular Hgb 30.2 pg (27.0-32.0); Mean Corpuscular Volume 90.9 fL (80-94); Mean Platelet Vol. 9.7 fl (6.2-12.0); Monocyte# 0.74 X10^3/uL; Monocyte% 7.1 % (0-10); NRBC Flagged by Analyzer 0 % (0-5); Neutrophil # 7.92 X10^3/uL (2.7-7.7); Neutrophil % 76.3 % (47-70); Platelet Count 287 K/mm3 (150-450); RBC Distribution Width CV 12.3 % (11.6-14.6); RBC Distribution Width SD 40.5 fl (35.1-43.9); White Blood Count 10.4 K/mm3 (4.4-11.0)
[2024-10-24 17:41] VITALS: BP 105/83; PULSE 81; RESP 16; O2SAT 97
[2024-10-24 17:50] LABS: Prothrombin Time (Protime)PT. 13.4 SECONDS (11.7-14.9)
[2024-10-24 17:51] LABS: Anion Gap 10 (5-15); BUN 11 mg/dL (4-19); BUN/Creat Ratio 11.8 RATIO (10-20); Calcium,Total 9.5 mg/dL (7.6-11.0); Carbon Dioxide 26.7 mmol/L (21.0-32.0); Chloride 100 mmol/L (98-108); Creatinine, Serum 0.97 mg/dL (0.70-1.20); EST Glomerular Filtration Rate 90 (>60); Estimated Creatinine Clearance 119.65 ml/min (50-250); Glucose 118 mg/dL (70-99); Partial Thromboplast Time 23.8 Seconds (24.1-36.2); Potassium 4.4 mmol/L (3.3-5.1); Sodium Level 137 mmol/L (133-145); Troponin T High Sensitivity 9 ng/L (<=22)
--- NOTE | 2024-10-24 17:51 | ED.VIS.STROK ---
HPI History of Present Illness Chief Complaint: Dizziness Detail of Chief Complaint: Abrupt onset of dizziness 10 AM when he turned his head and felt a click/sn Informant: patient Onset/Context/Timing Onset: Today (10 AM) Context: Sudden Onset Timing: Continuous Quality and Location: Positive for - (Vertigo) Onset: 10 AM Current Severity: Mild Maximum Severity: Moderate Worsened by: Nothing Relieved by: Nothing Associated Symptoms Associated Symptoms: Positive for Nausea and Vomiting (X 3); Negative for Headache or Chest Pain Narrative Narrative: Patient is a 58-year-old male. BMI is 53.1. He is on no medication. He has remote history of benign paroxysmal positional vertigo. Patient states he was at work. He works on a tow motor. He has no history of trauma. He has had no manipulation of his neck. He states he turned his head felt a snap/pop and had abrupt onset of dizziness which she does not find is a spinning sensation. He denied double vision, blurred vision loss of vision. States he is having trouble walking. He has had nausea with 3 episodes of vomiting. Son states he is having trouble walk he has no other complaints. Prior similar symptoms: No Recent Illness/Hospitalization: No [facility] Medical History Vertigo Back pain Umbilical hernia Home Medications ?Medication ?Instructions ?Recorded ?Last Taken ?Type meclizine 25 mg tablet 25 mg PO TID PRN dizziness 10/24/24 10/24/24 History Allergy/AdvReac Type Severity Reaction Status Date / Time No Known Allergies Allergy Verified 10/24/24 16:34 Surgical History S/P appendectomy Social History Smoking Status: Never smoker ROS ROS ED Constitutional Constitutional ED: Denies chills, fever(s), subjective or sweats Eyes Eyes: Denies blurry vision, change in vision or diplopia ENT ENT ED: Denies ear pain, rhinorrhea or sore throat Cardiovascular Cardiovascular: Denies chest pain, palpitations, paroxysmal nocturnal dyspnea or racing heartbeat Respiratory/Chest Respiratory/Chest: Denies cough, dyspnea, dyspnea on exertion or paroxysmal nocturnal dyspnea Gastrointestinal Gastrointestinal: Denies abdominal pain, constipation, diarrhea, melena, nausea or vomiting Genitourinary Genitourinary ED: Denies dysuria, hematuria or urinary frequency Musculoskeletal Musculoskeletal: Denies arthralgias, back pain, myalgias or neck pain Integumentary Denies abscess, Abrasions or rash Neurologic Neurologic: Denies headache(s), paresthesias or weakness Psychiatric Psychiatric: Denies anxiety, depression or suicidal ideation Hematologic/Lymphatic Hematologic/Lymphatic: Denies easy bleeding or easy bruising EXAM Physical Exam Const Vital Signs: 10/24/24 16:32 10/24/24 17:11 10/24/24 17:41 Temperature 97.7 F L Temperature Source Oral Pulse Rate 82 62 81 Respiratory Rate 16 18 16 Blood Pressure 120/80 141/62 H 105/83 H Blood Pressure Mean 93 88 90 Pulse Ox 94 98 97 Oxygen Delivery Method Room Air Room Air Room Air 10/24/24 17:55 10/24/24 18:30 Temperature Temperature Source Pulse Rate 91 Respiratory Rate 20 H Blood Pressure 125/70 H Blood Pressure Mean 88 Pulse Ox 94 Oxygen Delivery Method Room Air Room Air Positive well nourished and well developed Constitutional Narrative: Patient appears ill. General Appearance ED: well developed HEENT Reports moist mucous membranes atraumatic Nose: other Other Details: No abnormality Eyes PERRL and EOMs intact bilaterally Eyes Narrative: With lateral gaze to the right patient has nystagmus. There is no nystagmus with lateral gaze to the left. General Eye ED: Negative for pale conjunctiva or scleral icterus Neck no lymphadenopathy, supple and no JVD Chest Wall inspection of chest normal and palpation of chest normal Resp normal respiratory effort and clear to auscultation bilaterally Cardio no murmurs Rate: regular rate Rhythm: regular rhythm Heart Sounds: S1 normal and S2 normal GI normal to inspection, nondistended, normoactive bowel sounds, soft to palpation, non-tender, non-distended and no masses Extremity normal to inspection General Extremety ED: Negative for deformity or edema General Extremity: Negative for deformity or edema Neuro oriented x3, CN's II-XII intact bilaterally and no sensory deficits noted Neuro Narrative: Patient has ataxic gait. He is unable to perform tandem gait without falling. Romberg with eyes open and close negative. There is no dysmetria. Grace Coma Scale: document GCS findings Spontaneous Obeys Commands Oriented 15 Sensorium / Orientation: alert Speech: speech normal Gait (Neuro): Negative for normal gait Motor Exam: strength 5/5 throughout Psych mental status grossly normal Skin no wounds General Skin Exam: Negative for jaundice Lesions: no lesions Rashes: no rashes MDM MDM MDM Narrative Medical decision making narrative: With patient turning his neck feeling a snap pop 1 needs to consider possibility of basilar artery dissection. Also need to consider posterior stroke. Stroke order set was initiated with CT minus as well as CTA of the head and neck. Appropriate blood work was obtained to assess for anemia, hypo and hyperglycemia. Since patient is unable to walk without falling he will need to be admitted. Since this is continuous since onset this is not consistent with paroxysmal benign positional vertigo. Need to evaluate for potential other causes which would be cerebral pontine angle tumor, acoustic neuroma, atypical presentation for peripheral vertigo. Lab Data Attestation: I reviewed the patient's lab results. Lab results narrative: CBC is unremarkable. Electrolyte panel is unremarkable. Glucose slightly elevated 118. CO2 anion gap normal. Troponin is normal. Labs: Laboratory Results - last 24 hr 10/24/24 17:22 WBC 10.4 RBC 4.50 L Hgb 13.6 Hct 40.9 MCV 90.9 MCH 30.2 MCHC 33.3 RDW Std Deviation 40.5 RDW Coeff of Curt 12.3 Plt Count 287 MPV 9.7 Immature Gran % (Auto) 0.400 Neut % (Auto) 76.3 H Lymph % (Auto) 14.5 L [place] % (Auto) 7.1 Eos % (Auto) 1.3 Baso % (Auto) 0.4 Absolute Neuts (auto) 7.9 H Absolute Lymphs (auto) 1.51 Nucleated RBC % 0 PT 13.4 INR 1.0 APTT 23.8 L Sodium 137 Potassium 4.4 Chloride 100 Carbon Dioxide 26.7 Anion Gap 10 BUN 11 Creatinine 0.97 Estim Creat Clear Calc 119.65 Est GFR (MDRD) Non-Af 90 BUN/Creatinine Ratio 11.8 Glucose 118 H Calcium 9.5 Troponin T High Sens 9 Radiography Diagnostic Testing: Clinical Impression(s) from Imaging Studies Brain CT 10/24/24 17:11 IMPRESSION: No acute intracranial abnormality. Reading Location: [id number] Head/Neck CTA 10/24/24 17:11 IMPRESSION: No acute arterial abnormalities of the head or neck. Reading Location: [place] [address] Hospitalist was paged at 1910 for admission since CTA was negative and there is no evidence of dissection. EKG Initial EKG: Attestation: I personally reviewed and interpreted this EKG as follows: Interpretation: Sinus Rhythm (Rate is 78. EKG is normal. AK interval is 144 ms. QS duration 82 ms. QT duration 362 ms. [place] normal) Management Discussion w/another healthcare provider: Hospitalist (Spoke with Dr. Darryl Quick. Observation status PCU) Treatment and Re-Evaluation Narrative: Patient was observed walking to the restroom. Son had to assist him. Will page hospitalist for admission for vertigo. Discharge Plan Dx/Rx/DC Orders Clinical Impression: Ataxia, Body mass index (BMI) greater than 50 Disposition Disposition: Acute Care Hospital [facility] NIHSS NIHSS 1a. Level of Consciousness: 0 - Alert; keenly responsive 1b. LOC Questions: 0 - Answers BOTH questions correctly 1c. LOC Commands: 0 - Performs BOTH tasks correctly 2. Best Gaze: 0 - Normal 3. Visual: 0 - No visual loss 4. Facial Palsy: 0 - Normal symmetrical movements 5a. Left Arm: 0 - No drift; arm holds 90 (or 45) degrees for full 10 seconds 5b. Right Arm: 0 - No drift; arm holds 90 (or 45) degrees for full 10 seconds 6a. Left Le - No drift; leg holds 30-degree position for full 5 seconds 6b. Right Le - No drift; leg holds 30-degree position for full 5 seconds 7. Limb Ataxia: 0 - Absent 8. Sensory: 0 - Normal; no sensory loss 9. Best Language: 0 - No aphasia; normal 10. Dysarthria: 0 - Normal 11. Extinction and Inattention: 0 - No abnormality Total: 0 Stroke Questions Stroke Team Activated: No Reviewed Inclusion/Exclusion criteria: No Was Patient considered for Endovascular Intervention?: No (Patient had no obvious LVO per my review. Awaiting read by radiologist.) IV Thrombolytic Administered: No (Outside of window) No contraindications from thrombolytic administration: No
--- NOTE | 2024-10-24 18:16 | ED.RN ---
Stopped [facility] per ED
[2024-10-24 18:30] VITALS: BP 125/70; PULSE 91; RESP 20; O2SAT 94
[2024-10-24 19:19] VITALS: BP 142/68; PULSE 83; RESP 24; TEMP 37; O2SAT 98
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
[2024-10-24 19:56] LABS: Troponin T High Sens 2 HR 10 ng/L (<=22)
[2024-10-24 20:03] VITALS: BP 142/68; PULSE 81; RESP 20; TEMP 37; O2SAT 99
== END 2024-10-24 20:04 | disposition home or self-care (01) ==
PROVIDERS: Emergency Provider Emergency Medicine; PCP Nurse Practitioner Family; Referring Provider Family Medicine; Visit Provider Emergency Medicine
DX: R27.0 Ataxia, unspecified (principal)
CPT/HCPCS: 70450; 70496; 70498; 80048; 84484; 85025; 85610; 85730; 93005; 99284; Q9967; A4216